=== PATIENT | male | born 1935 | race Caucasian/White ===

== ENCOUNTER 2016-07-23 11:40 | Day surgery (SDC) | payer OTHER, BC ==
[~2016-07-23] VITALS: Ht 172.7 cm; Wt 68.0 kg
[~2016-07-23 11:40] MED LIST: ASPIR-LOW81 MG PO; ATENOLOL25 MG PO; DIGOXIN125 MCG PO; FOSINOPRIL SODI40 MG PO; HYDROCHLOROTHIA25 MG PO; OCUVITE TABLET1 EACH PO; OMEGA 3-6-9 11200 MG PO; TRAMADOL HCL50 MG PO; VITAMIN D35000 UNIT PO; WARFARIN SODIU7.5 MG PO; WARFARIN SODIUM5 MG PO
== END 2016-07-23 17:15 | disposition home or self-care (01) ==
LOC: CATH 11:40
DX: Z45.010 Encounter for checking and testing of cardiac pacemaker pulse generator [battery] (principal); I49.5 Sick sinus syndrome; I48.0 Paroxysmal atrial fibrillation; E78.2 Mixed hyperlipidemia; I25.10 Atherosclerotic heart disease of native coronary artery without angina pectoris; Z95.1 Presence of aortocoronary bypass graft; I10 Essential (primary) hypertension; G89.29 Other chronic pain; Z82.49 Family history of ischemic heart disease and other diseases of the circulatory system; Z85.828 Personal history of other malignant neoplasm of skin; Z79.01 Long term (current) use of anticoagulants; Z88.8 Allergy status to other drugs, medicaments and biological substances; Z88.0 Allergy status to penicillin
CPT/HCPCS: 93005; C1786; J0690; J0696; J2250; J3010; J7050; S0020

== ENCOUNTER 2017-12-22 18:40 | Inpatient (IN) | payer OTHER, BC ==
[~2017-12-22] VITALS: Ht 170.2 cm; Wt 68.3 kg
[2017-12-22 19:16] LABS: HEMATOCRIT 37.1 % (38.0-50.0); HEMOGLOBIN 12.7 G/DL (12.5-16.6); MCHC 34.2 G/DL (30.0-36.0); MCV 93.5 FL (86-99); PLATELET COUNT 257 K/uL (156-360); RBC DIS.WIDTH-CV 13.1 % (11.8-14.6); RBC DIS.WIDTH-SD 45.1 % (39-53); RED BLOOD COUNT 3.97 M/uL (4.00-5.50); WHITE BLOOD COUNT 9.3 K/uL (4.1-10.2)
[2017-12-22 19:38] LABS: CHLORIDE 102 mEq/L (99-109); POTASSIUM 4.3 mEq/L (3.7-5.4); SODIUM 138 mEq/L (136-147)
[2017-12-22 19:39] LABS: MAGNESIUM 2.1 mg/dL (1.3-2.7)
[2017-12-22 19:40] LABS: GLUCOSE 130 mg/dL (70-99); TROP-I INTERPRETATION NEGATIVE; TROPONIN-I 0.27 ng/mL (0.0-0.30)
[2017-12-22 19:44] LABS: CREATININE 1.4 mg/dL (0.6-1.3); GFR ESTIMATE (CALCULATED) 51 mL/min/ (58.99-99999); UREA NITROGEN (BUN) 38 mg/dL (9-23)
[2017-12-22 20:07] LABS: INTER. NORMALIZED RATIO 3.3
[2017-12-22 20:10] LABS: PTT 40.2 SEC (25-37)
[2017-12-22] MEDS ORDERED: BENADRYL25 MG PO (20:59)
[2017-12-22] MEDS ORDERED: PRAVACHOL20 MG PO (20:59)
[2017-12-22] MEDS ORDERED: FLONASE16 G1 BOTH NARES (21:00)
[2017-12-22] MEDS ORDERED: ARTIFICIAL TEAR1510 BOTH EYES (21:00)
[2017-12-23] VITALS (22 sets, daily range): BP systolic 82–134; BP diastolic 45–91
[2017-12-23 05:46] LABS: INTER. NORMALIZED RATIO 2.9
[2017-12-23 06:05] LABS: CHLORIDE 105 MEQ/L (99-109); GFR ESTIMATE (CALCULATED) > 59 mL/min/ (58.99-99999); GLUCOSE 98 mg/dL (70-99); MAGNESIUM 1.6 mg/dl (1.3-2.7); PHOSPHORUS 3.1 mg/dL (2.5-4.9); POTASSIUM 4.2 MEQ/L (3.7-5.4); SODIUM 141 MEQ/L (136-147); UREA NITROGEN (BUN) 31 mg/dL (9-23)
[2017-12-23 06:06] LABS: TROP-I INTERPRETATION NEGATIVE; TROPONIN-I 0.27 ng/mL (0.0-0.30)
[2017-12-23 07:55] LABS: DIGOXIN < 0.3 ng/mL (0.8-2.0)
[2017-12-23 08:50] LABS: THYROTROPIN (TSH) 0.34 MIU/L (0.4-5.5)
[2017-12-23 13:34] LABS: TROP-I INTERPRETATION NEGATIVE; TROPONIN-I 0.26 ng/mL (0.0-0.30)
[2017-12-24] VITALS (19 sets, daily range): BP systolic 99–153; BP diastolic 49–91
[2017-12-24 05:15] LABS: INTER. NORMALIZED RATIO 2.4
[2017-12-24 05:16] LABS: HEMATOCRIT 35.1 % (38.0-50.0); MCH 31.4 PG (29.0-34.0); MCHC 34.2 G/DL (30.0-36.0); MCV 91.9 FL (86-99); PLATELET COUNT 228 K/uL (156-360); RBC DIS.WIDTH-CV 12.9 % (11.8-14.6); RBC DIS.WIDTH-SD 43.5 % (39-53); RED BLOOD COUNT 3.82 M/uL (4.00-5.50); WHITE BLOOD COUNT 7.7 K/uL (4.1-10.2)
[2017-12-24 05:41] LABS: CHLORIDE 103 MEQ/L (99-109); CREATININE 0.9 MG/DL (0.6-1.3); GFR ESTIMATE (CALCULATED) > 59 mL/min/ (58.99-99999); GLUCOSE 105 mg/dL (70-99); POTASSIUM 3.7 MEQ/L (3.7-5.4); SODIUM 138 MEQ/L (136-147); UREA NITROGEN (BUN) 23 mg/dL (9-23)
[2017-12-25 00:05] VITALS: BP 105/63
[2017-12-25 04:06] VITALS: BP 130/64
[2017-12-25 05:18] LABS: BASOPHIL (%) 0.6 % (0-1); EOSINOPHIL (%) 5.3 % (0-5); EOSINOPHIL COUNT 0.4 K/uL (0-0.3); HEMATOCRIT 36.3 % (38.0-50.0); HEMOGLOBIN 12.4 G/DL (12.5-16.6); IMMATURE GRANULOCYTE (%) 0.3 % (0.0-0.7); LYMPHOCYTE (%) 23.6 % (15-42); LYMPHOCYTE COUNT 1.7 K/uL (1.0-2.8); MCH 31.8 PG (29.0-34.0); MCHC 34.2 G/DL (30.0-36.0); MCV 93.1 FL (86-99); MONOCYTE (%) 13.8 % (3-12); NEUTROPHIL (%) 56.4 % (45-76); NEUTROPHIL COUNT 4.1 K/uL (1.8-6.4); PLATELET COUNT 221 K/uL (156-360); RBC DIS.WIDTH-CV 13.1 % (11.8-14.6); RBC DIS.WIDTH-SD 44.3 % (39-53); WHITE BLOOD COUNT 7.2 K/uL (4.1-10.2)
[2017-12-25 05:46] LABS: CHLORIDE 104 MEQ/L (99-109); CREATININE 0.9 MG/DL (0.6-1.3); GFR ESTIMATE (CALCULATED) > 59 mL/min/ (58.99-99999); GLUCOSE 109 mg/dL (70-99); POTASSIUM 4.2 MEQ/L (3.7-5.4); SODIUM 139 MEQ/L (136-147); UREA NITROGEN (BUN) 18 mg/dL (9-23)
[2017-12-25 05:47] LABS: MAGNESIUM 1.9 mg/dl (1.3-2.7)
[2017-12-25 08:58] VITALS: BP 165/85
[2017-12-25 09:53] LABS: INTER. NORMALIZED RATIO 1.7
[2017-12-25 12:00] VITALS: BP 130/82
[2017-12-25 17:43] VITALS: BP 146/93
[2017-12-25 21:15] VITALS: BP 143/84
[2017-12-26 00:52] VITALS: BP 124/82
[2017-12-26 05:01] VITALS: BP 141/86
[2017-12-26 05:27] LABS: INTER. NORMALIZED RATIO 1.7
[2017-12-26 07:53] VITALS: BP 126/87
[2017-12-26 12:08] VITALS: BP 153/87
[2017-12-26] MEDS ORDERED: SOTALOL80 MG PO (13:12)
== END 2017-12-26 14:35 | disposition home or self-care (01) | DRG 315 ==
LOC: EME 18:40 → 4EAST 23:33 → 4WEST 23:33 → EDOF 23:33 → ENRESERV 23:34 → 4WEST 12-23 00:15 → ENRESERV 12-24 17:48 → 4EAST 12-24 20:12 → ENPENDDIS 12-26 → 4EAST 12-26 08:19
PROVIDERS: Emergency Medicine; Specialist; Student in an Organized Health Care Education/Training Program; Surgery
DX: T82.198A Other mechanical complication of other cardiac electronic device, initial encounter (principal); I47.2 Ventricular tachycardia; N17.9 Acute kidney failure, unspecified; I48.1 Persistent atrial fibrillation; R79.1 Abnormal coagulation profile; T45.515A Adverse effect of anticoagulants, initial encounter; I48.2 Chronic atrial fibrillation; I25.5 Ischemic cardiomyopathy; Z96.651 Presence of right artificial knee joint; E78.5 Hyperlipidemia, unspecified; G89.29 Other chronic pain; I10 Essential (primary) hypertension; I25.10 Atherosclerotic heart disease of native coronary artery without angina pectoris; M54.5 Low back pain; R91.1 Solitary pulmonary nodule; E83.42 Hypomagnesemia; Z79.01 Long term (current) use of anticoagulants; Z95.0 Presence of cardiac pacemaker; Z95.1 Presence of aortocoronary bypass graft; Z87.891 Personal history of nicotine dependence; Z85.828 Personal history of other malignant neoplasm of skin; Z88.0 Allergy status to penicillin; Z79.82 Long term (current) use of aspirin; Z79.51 Long term (current) use of inhaled steroids; Z82.49 Family history of ischemic heart disease and other diseases of the circulatory system
CPT/HCPCS: 71046; 80048; 80162; 82330; 83735; 84100; 84439; 84443; 84484; 85025; 85027; 85610; 85730; 87641; 93005; 93306; 94799; 99281; 99285; J2001; J3475; J7030; J7040